=== PATIENT | male | born 1940 | race Caucasian/White ===

== ENCOUNTER 2020-11-20 10:26 | Emergency (ER) | payer SELFPAY ==
[~2020-11-20] VITALS: Ht 175.3 cm; Wt 77.6 kg
[2020-11-20] MEDS ORDERED: ELIQUIS5 MG PO (10:59)
[2020-11-20] MEDS ORDERED: NEOPOLHCSU RIGHTEAR (11:01)
== END 2020-11-20 11:09 | disposition home or self-care (01) ==
LOC: ER 10:26
DX: S00.411A Abrasion of right ear, initial encounter (principal); I48.91 Unspecified atrial fibrillation; Z79.01 Long term (current) use of anticoagulants; W22.8XXA Striking against or struck by other objects, initial encounter
CPT/HCPCS: 99282